=== PATIENT | female | born 1955 | race African-American/Black ===

== ENCOUNTER 2018-10-31 14:33 | Emergency (ER) | payer MEDICARE, MEDICAID ==
[2018-10-31] MEDS ORDERED: Ketorolac Tromethamine 30 MG/ML VIAL ONE (14:59)
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
[2018-10-31] MEDS ORDERED: Dexamethasone 10 MG/ML VIAL ONE (15:44)
--- NOTE | 2018-11-01 10:34 | EKG ---
Test Reason : Blood Pressure : / mmHG Vent. Rate : 085 BPM Atrial Rate : 085 BPM P-R Int : 176 ms QRS Dur : 094 ms QT Int : 374 ms P-R-T Axes : 068 -15 034 degrees QTc Int : 445 ms Normal sinus rhythm Possible Left atrial enlargement Incomplete right bundle branch block Inferior infarct , age undetermined Abnormal ECG Confirmed by NEO LOPEZ ([id number]), manager editorial ARNULFO OSEGUERA ([id number]) on 11/01/2018 10:34:12 AM Referred By: Confirmed By:NEO LOPEZ
== END 2018-10-31 15:56 | disposition home or self-care (01) ==
LOC: ERS 14:33
DX: G89.29 Other chronic pain (principal); M25.512 Pain in left shoulder; M06.9 Rheumatoid arthritis, unspecified; F41.9 Anxiety disorder, unspecified; F31.9 Bipolar disorder, unspecified; F20.9 Schizophrenia, unspecified
CPT/HCPCS: 93005; 96372; J1100; J1885

== ENCOUNTER 2019-06-23 08:26 | Outpatient (CLI) | payer MEDICARE, MEDICAID ==
--- NOTE | 2019-06-23 10:16 | MRI ---
MRI Upper Ext Jt Lt WO Con History: M 75.102 tear of rotator cuff Comparison: Shoulder radiographs 10/31/2018 Findings: Biceps tendon: High-grade interstitial tearing and tenosynovitis of the extra-articular ten don with high-grade intra-articular tendinosis and interstitial tearing. Erosive changes of the proximal bicipital groove due to chronic micromotion. Partial tear of the superior glenohumeral ligam ent portion of the biceps jolynn. There is debris within the biceps tendon sheath. Labrum: Mild volume loss superior labrum without displaced tear. Cartilage: No full-thickness cartilage defect is appreciated. Rotator cuff: High-grade undersurface partial tear supraspinatus tendon from the footprint with a 1.5 cm gap. The tear is 60-75% thickness. There is interstitial tearing extending along the myotendinous junction. Moderate tendinosis supraspinatus tendon. High-grade tendinosis and high-grade undersurface partial tearing subscapularis tendon. Soft tissues: Mild fibrosis of the rotator abnormal. Axillary pouch is not significantly thickened. Muscles: Mild 20-30% atrophy supraspinatus muscle. Bones: Type I acromion. Normal glenoid version. No acute fracture or malalignment. Impression: 1. High-grade 60-70 % partial articular supraspinatus tendon avulsion from the footprint with a 1.5 c m gap. There are associated interstitial delaminating myotendinous cysts. 2. Moderate tendinosis infraspinatus tendon without full-thickness tear. 3. High-grade tearing throughout the subscapularis proximal one half fibers with associated tendinosi s. 4. Extensive tenosynovitis extra articular biceps with interstitial tearing as well as calcific debri s within the tendon sheath. High-grade tendinosis and interstitial tearing propagates into the intra-articular tendon. There are associated partial tears and fibrosis of the coracohumeral ligament and superior glenohumeral ligament portions of the biceps jolynn. 5. Mild 20-30% atrophy supraspinatus muscle.
== END 2019-06-23 08:27 | disposition home or self-care (01) ==
LOC: BICMRI 08:26
PROVIDERS: ATTEND Orthopaedic Surgery
DX: M75.102 Unspecified rotator cuff tear or rupture of left shoulder, not specified as traumatic (principal); M65.812 Other synovitis and tenosynovitis, left shoulder

== ENCOUNTER 2019-07-21 05:46 | Outpatient (CLI) | payer MEDICARE, MEDICAID ==
[2019-07-21 09:43] LABS: Hemoglobin 13.8 g/dL (12.0-16.0); Mean Corpuscular HGB CONC 32.4 g/dL (32.0-36.0); Mean Corpuscular Hemoglobin 28.7 pg (27.0-31.0); Mean Corpuscular Volume 88.3 fL (78.0-98.0); Mean Platelet Volume 10.2 fL (7.4-10.4); Platelet Count 183 thou/uL (130-400); RBC Distribution Width 11.9 % (11.5-14.5); White Blood Cell (WBC) Count 7.5 thou/uL (4.8-10.8)
[2019-07-21 10:22] LABS: Lymphocytes 52 % (21-51); MDiff Complete? YES; Monocytes 12 % (0-10); Neutrophil 29 % (42-75); Platelet Morphology Comment Appears Adequate; RBC Morphology Normal; Reactive Lymphocytes 7 % (0-10)
== END 2019-07-21 05:47 | disposition home or self-care (01) ==
LOC: LABBT 05:46
PROVIDERS: ATTEND Orthopaedic Surgery
DX: Z01.812 Encounter for preprocedural laboratory examination (principal); M75.102 Unspecified rotator cuff tear or rupture of left shoulder, not specified as traumatic
CPT/HCPCS: 85025

== ENCOUNTER 2019-07-23 05:55 | Day surgery (SDC) | payer MEDICARE, MEDICAID ==
--- NOTE | 2019-07-21 07:58 | ULT ---
US Hepatic Doppler HISTORY: Chronic hepatitis C COMPARISON: None. FINDINGS: The liver, gallbladder, spleen and visualized portions of the pancreas, aorta and IVC appea r normal. The gallbladder wall measures 3 mm in thickness and the common bile duct measures 3 mm in diameter. The spleen measures 9.7 cm in length. No free fluid is seen. There is normal flow and gary l waveforms in the hepatic, portal and splenic vasculature. IMPRESSION: Unremarkable exam.
[2019-07-21 08:19] VITALS: BMI 30.2
[2019-07-23] MEDS ORDERED: Lidocaine 1% w/Epinephrine 1:100K 20 ML VIAL ONE (06:25)
[2019-07-23] MEDS ORDERED: Bupivacaine 0.25% HCL 30 ML VIAL ONE (06:25)
[2019-07-23] MEDS ORDERED: Fentanyl 100 MCG/2 ML VIAL ONE ×2 (06:35→07:23)
[2019-07-23] MEDS ORDERED: Midazolam HCl 2 mg/2 ml Vial ONE (06:35)
[2019-07-23] MEDS ORDERED: Lidocaine 1% (PF) 30 ML VIAL ONE (06:48)
[2019-07-23] MEDS ORDERED: Promethazine HCl 25 MG/ML VIAL IM PRN ×2 (07:33→08:14)
[2019-07-23] MEDS ORDERED: Ropivacaine 0.2% 550 ML 550 ML NERVE BLCK SCH (07:33)
[2019-07-23] MEDS ORDERED: traMADol HCl 50 MG TAB PO PRN ×2 (07:33)
[2019-07-23] MEDS ORDERED: Fentanyl 100 MCG/2 ML VIAL IV PRN (07:33)
[2019-07-23] MEDS ORDERED: HYDROcodone/Acetaminophen 5/325 mg Tablet PO PRN ×2 (07:33)
[2019-07-23] MEDS ORDERED: Zolpidem Tartrate 5 MG TAB PO PRN (07:33)
[2019-07-23] MEDS ORDERED: Ondansetron PF 4 MG/2 ML Vial IVP PRN (07:33)
[2019-07-23] MEDS ORDERED: Promethazine HCl 25 MG/ML VIAL SLOW IVP PRN (08:14)
[2019-07-23] MEDS ORDERED: Meperidine HCl/PF 25 MG/ML VIAL SLOW IVP PRN (08:14)
[2019-07-23] MEDS ORDERED: EPHEDRINE 25 MG/5 ML SYRINGE ONE (10:43)
[2019-07-23] MEDS ORDERED: Glycopyrrolate 0.2 MG/ML 5 ML SYRINGE ONE (10:43)
[2019-07-23] MEDS ORDERED: Ondansetron PF 4 MG/2 ML Vial ONE (10:43)
[2019-07-23] MEDS ORDERED: Rocuronium Bromide 10 MG/ML (10ML VIAL) ONE (10:43)
[2019-07-23] MEDS ORDERED: Dexamethasone 20 MG/5 ML VIAL ONE (10:43)
[2019-07-23] MEDS ORDERED: PHENYLEPHRINE-NS 100 MCG/ML 10 ML SYRINGE ONE (10:43)
[2019-07-23] MEDS ORDERED: Ropivacaine 0.2% HCl/PF (40 MG/20 ML VIAL) ONE (10:43)
[2019-07-23] MEDS ORDERED: Ropivacaine 0.5% HCl/PF (150 MG/30 ML VIAL) ONE (10:43)
[2019-07-23] MEDS ORDERED: PROPOFOL 200 MG/20 ML VIAL ONE (10:43)
[2019-07-23] MEDS ORDERED: Lidocaine 1% PF 5 ML VIAL ONE (10:43)
--- NOTE | 2019-07-23 10:53 | OP ---
DATE OF PROCEDURE: 07/23/2019 PREOPERATIVE DIAGNOSES: 1. Left high-grade partial-thickness tear. 2. Biceps tendinopathy. 3. Left acromioclavicular joint arthritis. POSTOPERATIVE DIAGNOSIS: 1. Full-thickness tear, supraspinatus. 2. Biceps tendinopathy with 30% tear. 3. Left acromioclavicular joint arthritis. PROCEDURES PERFORMED: 1. Left rotator cuff repair. 2. Left biceps tenodesis. UNLOADER OPERATOR: None. ANESTHESIOLOGIST: Paul Nunn MD. ANESTHESIA: The patient received a general endotracheal intubation with interscalene block. ESTIMATED BLOOD LOSS: 30 mL. TOURNIQUET TIME: None. IMPLANTS: An Arthrex 5.5 Corkscrew, a 4.5 SwiveLock, and an 8 x 19 mm SwiveLock tenodesis screw. ANTIBIOTICS: Ancef 2 g. COMPLICATIONS: None. HISTORY OF PRESENT ILLNESS: Ms. Rodarte si a 63-year-old female, who presents with left shoulder pain that began in 2019. She complains of numbness occasionally. The patient works at [employer] in [employer]. gave good relief, but continued to have pain. The patient presented with an MRI with a high-grade partial-thickness tear, some . She had severe tendinosis as well as some leading edge tearing of the subscapularis. I discussed with the patient the risks and benefits of a left arthroscopic rotator cuff repair with biceps tenodesis and potential decompression. I discussed the risks and benefits to include pain, scar bleeding, infection, damage to vital structures, decreased range of motion and strength, need for further surgeries, continued pain despite surgical intervention, Feroz deformity, loss of life or limb. The patient understood the risks and benefits and elected to proceed. DESCRIPTION OF PROCEDURE: Time-out was performed designating the patient's left upper extremity as the operative site based on site, consents, and marking. After time-out, the patient's left upper extremity was prepped and draped in sterile fashion. Posterior working portal was placed and anterior working portal was utilized to visualize the shoulder. On entering the shoulder, I saw a flattened, partially torn biceps. I did not like the look of the biceps; therefore. I tenotomized it. I could find the tear, intra-articularly, it was in the leading edge of the supraspinatus footprint, which I documented, cleaned up intra-articularly and moved subacromially. There was not significant bursa, you could find the tear of the rotator cuff subacromially. I had to use a shaver to kind of create a footprint for leaning pad for the anchor. I placed a 5.[address] and passed 4 sutures posterior to anterior horizontal mattress sutures and took a 5.5 SwiveLock laterally to compress it down to the bone. I took pictures. I then moved. I placed the lateral incision and placed an anterior portal to move to my lateral cannula for shuttling sutures. I then found the patient's biceps, opened up the sheath, cleaned off and then I found the biceps. I pulled the biceps out and through 5 whipped stitches with a FiberLoop through the tendon. I used the SwiveLock Bio-Tenodesis screw and passed sutures with a 4-prong. I drilled a hole within the bicipital groove about 30 mm drill 8.5 mm screw and tenodesed the suture into place. I took the sutures from the fork and sewed them over the Bio-Tenodesis screw, cut them and removed this we took final pictures, washed and closed. The patient will be placed in a sling with elbow, wrist, and hand motion. No active elbow flexion. She will follow up with me in about 2 weeks to begin passive range of motion. The patient's tendon quality was very poor. I am concerned about her ability to heal and potential rupture of the biceps as the flimsy nature of her tissues. Her subscapularis tear was not really visualized intra-articularly. I felt by removing the biceps, I would take pressure off it. I will see the patient back in clinic in 2 weeks. Job ID: [id number]
== END 2019-07-23 13:03 | disposition home or self-care (01) ==
LOC: SDC 05:55
PROVIDERS: ATTEND Orthopaedic Surgery
PROC: 0LM24ZZ Reattachment of Left Shoulder Tendon, Percutaneous Endoscopic Approach (ICD-10-PCS; principal; 2019-07-23)
PROC: 0RHK44Z Insertion of Internal Fixation Device into Left Shoulder Joint, Percutaneous Endoscopic Approach (ICD-10-PCS; 2019-07-23)
PROC: 0LS44ZZ Reposition Left Upper Arm Tendon, Percutaneous Endoscopic Approach (ICD-10-PCS; 2019-07-23)
PROC: 0RHK44Z Insertion of Internal Fixation Device into Left Shoulder Joint, Percutaneous Endoscopic Approach (ICD-10-PCS; 2019-07-23)
PROC: 3E0T3BZ Introduction of Anesthetic Agent into Peripheral Nerves and Plexi, Percutaneous Approach (ICD-10-PCS; 2019-07-23)
DX: M75.122 Complete rotator cuff tear or rupture of left shoulder, not specified as traumatic (principal); M75.22 Bicipital tendinitis, left shoulder; M19.012 Primary osteoarthritis, left shoulder; G89.18 Other acute postprocedural pain; M47.812 Spondylosis without myelopathy or radiculopathy, cervical region; F31.9 Bipolar disorder, unspecified; F20.9 Schizophrenia, unspecified; F41.9 Anxiety disorder, unspecified; M19.90 Unspecified osteoarthritis, unspecified site; Z79.899 Other long term (current) drug therapy
CPT/HCPCS: 29827; 29828; 64416; 76705; 97139; A4306; C1713 ×2; J0690; J1100; J2001; J2250; J2405; J2704; J2795; J3010; S0020

== ENCOUNTER 2019-11-19 03:59 | Inpatient (IN) | payer MEDICARE, MEDICAID ==
[2019-11-19] MEDS ORDERED: Morphine 4 MG/ML VIAL ONE (04:14)
[2019-11-19] MEDS ORDERED: Ondansetron PF 4 MG/2 ML Vial ONE ×3 (04:14→04:55)
[2019-11-19] MEDS ORDERED: Verapamil 5 MG/2 ML VIAL ONE (04:18)
[2019-11-19] MEDS ORDERED: Heparin 10,000 UNITS/1 ML VIAL ONE (04:18)
[2019-11-19] MEDS ORDERED: Nitroglycerin 100MG/250ML BOT 250 ML ONE (04:19)
[2019-11-19 04:28] LABS: Hemoglobin 13.1 g/dL (12.0-16.0); Mean Corpuscular HGB CONC 33.5 g/dL (32.0-36.0); Mean Corpuscular Hemoglobin 29.6 pg (27.0-31.0); Mean Corpuscular Volume 88.4 fL (78.0-98.0); Mean Platelet Volume 10.2 fL (7.4-10.4); Platelet Count 143 thou/uL (130-400); Red Blood Cell (RBC) Count 4.41 mill/uL (4.20-5.40); White Blood Cell (WBC) Count 6.3 thou/uL (4.8-10.8)
[2019-11-19 04:42] LABS: ALT (SGPT) 11 U/L (8-55); AST (SGOT) 35 U/L (5-34); Albumin 3.6 g/dL (3.4-4.8); Alkaline Phosphatase 129 U/L (40-110); Anion Gap 10 mmol/L (10-20); BUN (Urea Nitrogen) 9 mg/dL (9.8-20.1); Bilirubin, Total 0.3 mg/dL (0.2-1.2); CK (CPK) 445 U/L (29-168); Calc. Creatinine Clearance 0 mL/min (70-130); Calcium 8.9 mg/dL (7.8-10.44); Carbon Dioxide 24 mmol/L (23-31); Chloride 108 mmol/L (98-107); Estimated GFR-MDRD 81; Globulin 3.5 g/dL (2.4-3.5); Glucose 122 mg/dL (80-115); Potassium 3.3 mmol/L (3.5-5.1); Protein, Total 7.1 g/dL (6.0-8.3); Sodium 139 mmol/L (136-145)
[2019-11-19] MEDS ORDERED: Midazolam HCl 2 mg/2 ml Vial ONE (04:44)
[2019-11-19 04:48] LABS: Eosinophils 3 % (0-10); Lymphocytes 60 % (21-51); MDiff Complete? YES; Monocytes 11 % (0-10); Neutrophil 26 % (42-75); Platelet Morphology Comment Appears Adequate
[2019-11-19] MEDS ORDERED: Morphine 2 MG/ML SYRINGE ONE (04:55)
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
[2019-11-19] MEDS ORDERED: diphenhydrAMINE 50 MG/ML VIAL ONE (05:13)
[2019-11-19 05:17] LABS: CKMB 34.5 ng/mL (0-6.6)
[2019-11-19] MEDS ORDERED: Morphine 2 MG/ML SYRINGE SLOW IVP PRN (05:54)
[2019-11-19] MEDS ORDERED: Zolpidem Tartrate 5 MG TAB PO PRN (05:54)
[2019-11-19] MEDS ORDERED: Nitroglycerin 0.4 MG TAB (25 Tab Bottle) SL PRN ×2 (05:54)
[2019-11-19] MEDS ORDERED: Milk Of Magnesia 30 ML UDCUP PO PRN (05:54)
[2019-11-19] MEDS ORDERED: Aspirin Chewable 81 MG TAB PO SCH (06:00)
[2019-11-19 07:03] LABS: Troponin I 3.573 ng/mL (< 0.028)
[2019-11-19] MEDS ORDERED: Metoprolol Tartrate 5 MG/5 ML VIAL ONE (08:44)
[2019-11-19] MEDS ORDERED: Nitroglycerin 0.4 MG TAB (25 Tab Bottle) ONE (08:44)
[2019-11-19] MEDS ORDERED: TICAGRELOR 90 MG TABLET PO SCH (09:00)
[2019-11-19] MEDS ORDERED: Metoprolol Tartrate 25 MG TAB PO SCH ×2 (09:00)
[2019-11-19] MEDS ORDERED: Lisinopril 2.5 MG TAB PO SCH ×2 (09:00)
[2019-11-19] MEDS ORDERED: Iopamidol 370 76% 100 ML VIAL ONE (09:37)
[2019-11-19] MEDS ORDERED: Iopamidol 370 76% 50 ML VIAL FS ONE (09:37)
[2019-11-19] MEDS: TICAGRELOR 90 MG TABLET PO SCH ×2 (09:42→21:20)
[2019-11-19] MEDS: Aspirin Chewable 81 MG TAB PO SCH (09:42)
[2019-11-19] MEDS: Carvedilol 6.25 MG TAB PO SCH ×2 (09:44→17:28)
[2019-11-19] MEDS ORDERED: Carvedilol 6.25 MG TAB PO SCH (09:45)
--- NOTE | 2019-11-19 09:50 | RAD ---
AP CHEST: Date: 11/19/2019 HISTORY: Chest pain. FINDINGS: Lung levi appear clear of infiltrate. Vascular markings normal. Heart and mediastinum unremarkable. IMPRESSION: No acute process identified. POS: AGW
[2019-11-19 12:19] LABS: Troponin I 7.443 ng/mL (< 0.028)
[2019-11-19] MEDS: Acetaminophen/Codeine 30-300mg Tablet PO PRN ×3 (12:20→21:19)
[2019-11-19] MEDS ORDERED: Atorvastatin Calcium 40 MG TAB PO SCH (21:00)
[2019-11-19] MEDS: Atorvastatin Calcium 40 MG TAB PO SCH (21:19)
[2019-11-20 04:03] LABS: #Basophils 0.1 thou/uL (0.0-0.2); #Eosinphils 0.1 thou/uL (0.0-0.7); #Lymphocytes 2.7 thou/uL (1.20-3.40); #Monocytes 0.4 thou/uL (0.11-0.59); %Basophils 0.9 % (0.0-1.0); %Eosinophils 1.3 % (0.0-10.0); %Lymphocytes 43.4 % (21.0-51.0); %Neutrophils 47.4 % (42.0-75.0); Mean Corpuscular HGB CONC 34.2 g/dL (32.0-36.0); Mean Corpuscular Hemoglobin 30.1 pg (27.0-31.0); Mean Corpuscular Volume 88.1 fL (78.0-98.0); Mean Platelet Volume 10.3 fL (7.4-10.4); Platelet Count 132 thou/uL (130-400); RBC Distribution Width 12.2 % (11.5-14.5); Red Blood Cell (RBC) Count 3.99 mill/uL (4.20-5.40); White Blood Cell (WBC) Count 6.2 thou/uL (4.8-10.8)
[2019-11-20 04:33] LABS: ALT (SGPT) 11 U/L (8-55); AST (SGOT) 32 U/L (5-34); Albumin 3.1 g/dL (3.4-4.8); Alkaline Phosphatase 86 U/L (40-110); Anion Gap 11 mmol/L (10-20); BUN (Urea Nitrogen) 8 mg/dL (9.8-20.1); Bilirubin, Total 0.4 mg/dL (0.2-1.2); Calc. Creatinine Clearance 99 mL/min (70-130); Calcium 8.6 mg/dL (7.8-10.44); Carbon Dioxide 22 mmol/L (23-31); Cardiac Risk 4.1 (Less than 4.5); Chloride 109 mmol/L (98-107); Cholesterol 163 mg/dl (< 200 Desired); Estimated GFR-MDRD Greater than 90; Globulin 3.1 g/dL (2.4-3.5); Glucose 94 mg/dL (80-115); HDL Cholesterol 40 mg/dL (>60 Neg Risk); LDL Cholesterol, Calculated 91 mg/dL; Potassium 3.7 mmol/L (3.5-5.1); Protein, Total 6.2 g/dL (6.0-8.3); Sodium 138 mmol/L (136-145); Triglycerides 160 mg/dL (Less than 150)
[2019-11-20] MEDS: TICAGRELOR 90 MG TABLET PO SCH ×2 (08:48→20:31)
[2019-11-20] MEDS: Aspirin Chewable 81 MG TAB PO SCH (08:48)
[2019-11-20] MEDS: Lisinopril 2.5 MG TAB PO SCH ×2 (08:48→20:31)
[2019-11-20] MEDS: Carvedilol 6.25 MG TAB PO SCH ×2 (08:48→16:54)
[2019-11-20] MEDS: Atorvastatin Calcium 40 MG TAB PO SCH (20:31)
[2019-11-21] MEDS: Lisinopril 2.5 MG TAB PO SCH ×2 (08:35→20:56)
[2019-11-21] MEDS: TICAGRELOR 90 MG TABLET PO SCH ×2 (08:35→20:56)
[2019-11-21] MEDS: Aspirin Chewable 81 MG TAB PO SCH (08:35)
[2019-11-21] MEDS: Carvedilol 6.25 MG TAB PO SCH ×2 (08:35→17:23)
--- NOTE | 2019-11-21 11:56 | EKG ---
Test Reason : Blood Pressure : / mmHG Vent. Rate : 081 BPM Atrial Rate : 081 BPM P-R Int : 176 ms QRS Dur : 108 ms QT Int : 382 ms P-R-T Axes : 060 003 047 degrees QTc Int : 443 ms Normal sinus rhythm Low voltage QRS Anteroseptal infarct , possibly acute * ACUTE AR * Abnormal ECG Confirmed by NEO LOPEZ ([id number]), book editor ARNULFO OSEGUERA ([id number]) on 11/21/2019 11:56:06 AM Referred By: Confirmed By:NEO LOPEZ
[2019-11-21] MEDS: Atorvastatin Calcium 40 MG TAB PO SCH (20:56)
[2019-11-22] MEDS: TICAGRELOR 90 MG TABLET PO SCH ×2 (09:02→20:36)
[2019-11-22] MEDS: Aspirin Chewable 81 MG TAB PO SCH (09:02)
[2019-11-22] MEDS: Lisinopril 2.5 MG TAB PO SCH ×2 (09:59→20:35)
[2019-11-22] MEDS: Carvedilol 6.25 MG TAB PO SCH ×2 (09:59→17:08)
[2019-11-22] MEDS: Atorvastatin Calcium 40 MG TAB PO SCH (20:36)
[2019-11-23 05:54] VITALS: BMI 29.0
[2019-11-23 07:32] VITALS: TEMP 98.3
[2019-11-23] MEDS: Aspirin Chewable 81 MG TAB PO SCH (09:03)
[2019-11-23] MEDS: Lisinopril 2.5 MG TAB PO SCH (09:03)
[2019-11-23] MEDS: Carvedilol 6.25 MG TAB PO SCH (09:03)
[2019-11-23] MEDS: TICAGRELOR 90 MG TABLET PO SCH (09:07)
[2019-11-23 10:04] VITALS: BP 116/82
--- NOTE | 2019-11-23 10:08 | DIS ---
DATE OF ADMISSION: 11/19/2019 DATE OF DISCHARGE: 11/23/2019 DISCHARGE DIAGNOSES: 1. Myocardial infarction. 2. Status post percutaneous transluminal coronary angioplasty and stent placed in the left anterior descending. 3. Hypertension. 4. Hepatitis C. HISTORY OF PRESENT ILLNESS/HOSPITAL COURSE: The patient is a 64-year-old woman , who presented with acute onset of substernal chest pain. The patient was using cocaine when she suddenly developed substernal chest pain. She presented to the Emergency Room with marked ST elevation and the patient underwent an emergent cardiac catheterization. 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 She had 2 stents placed into the proximal LAD. The patient was also found to have a 99% stenosis in the left circumflex artery. The right coronary artery had a diffuse disease. The patient was placed on medical therapy. She remained free of chest discomfort. She had a followup echocardiograms, which showed improvement in her left ventricular function. The patient is discharged in stable, but guarded condition. DISCHARGE MEDICATIONS: 1. Coreg 6.25 b.i.d. 2. Lisinopril 2.5 b.i.d. 3. Aspirin 81 daily. 4. Lipitor 40 at bedtime. 5. Brilinta 90 mg p.o. b.i.d. Job ID: [id number] [facility]
== END 2019-11-23 14:41 | disposition home or self-care (01) | DRG 249 ==
LOC: ERS 03:59 → CCU 05:43 → 2SE 11-20 10:24
PROVIDERS: ADMIT Internal Medicine Cardiovascular Disease; ATTEND Internal Medicine Cardiovascular Disease
PROC: 02703DZ Dilation of Coronary Artery, One Artery with Intraluminal Device, Percutaneous Approach (ICD-10-PCS; principal; 2019-11-19)
PROC: 4A023N7 Measurement of Cardiac Sampling and Pressure, Left Heart, Percutaneous Approach (ICD-10-PCS; 2019-11-19)
PROC: B2151ZZ Fluoroscopy of Left Heart using Low Osmolar Contrast (ICD-10-PCS; 2019-11-19)
PROC: B2111ZZ Fluoroscopy of Multiple Coronary Arteries using Low Osmolar Contrast (ICD-10-PCS; 2019-11-19)
DX: I21.09 ST elevation (STEMI) myocardial infarction involving other coronary artery of anterior wall (principal); B18.2 Chronic viral hepatitis C; F31.9 Bipolar disorder, unspecified; F20.9 Schizophrenia, unspecified; F41.9 Anxiety disorder, unspecified; I10 Essential (primary) hypertension; F14.90 Cocaine use, unspecified, uncomplicated; Z90.710 Acquired absence of both cervix and uterus
CPT/HCPCS: 36415; 71045; 80053; 80061; 82550; 82553; 84484; 85025; 85347; 92941; 93005; 93010; 93306; 93458; 93798; 96374; 96375; 99152; 99153; C1876; J1200; J1644; J2250; J2270; J2405; Q9967

== ENCOUNTER 2021-04-12 11:02 | Emergency (ER) | payer OTHER, MEDICARE, MEDICAID ==
[2021-04-12 13:09] LABS: Hemoglobin 13.1 g/dL (12.0-16.0); Mean Corpuscular HGB CONC 33.1 g/dL (32.0-36.0); Mean Corpuscular Hemoglobin 30.5 pg (27.0-31.0); Mean Corpuscular Volume 92.2 fL (78.0-98.0); Mean Platelet Volume 9.7 fL (7.4-10.4); Platelet Count 135 thou/uL (130-400); RBC Distribution Width 12.4 % (11.5-14.5); White Blood Cell (WBC) Count 5.8 thou/uL (4.8-10.8)
[2021-04-12 13:25] LABS: ALT (SGPT) 11 U/L (8-55); AST (SGOT) 16 U/L (5-34); Albumin 4.1 g/dL (3.4-4.8); Alkaline Phosphatase 86 U/L (40-110); Anion Gap 13 mmol/L (10-20); BUN (Urea Nitrogen) 17 mg/dL (9.8-20.1); Bilirubin, Total 0.3 mg/dL (0.2-1.2); Calc. Creatinine Clearance 0 mL/min (70-130); Calcium 9.7 mg/dL (7.8-10.44); Carbon Dioxide 23 mmol/L (23-31); Chloride 107 mmol/L (98-107); Globulin 3.6 g/dL (2.4-3.5); Glucose 91 mg/dL (80-115); Potassium 4.3 mmol/L (3.5-5.1); Protein, Total 7.7 g/dL (5.8-8.1); Sodium 139 mmol/L (136-145)
[2021-04-12 13:39] LABS: Eosinophils 1 % (0-10); Lymphocytes 36 % (21-51); MDiff Complete? YES; Monocytes 4 % (0-10); Neutrophil 37 % (42-75); Platelet Morphology Comment Appears Adequate; Polychromasia SLIGHT = 2-3 cells (100X) (0-2/hpf); Reactive Lymphocytes 22 % (0-10)
== END 2021-04-12 14:19 | disposition home or self-care (01) ==
LOC: ERS 11:02
DX: M62.830 Muscle spasm of back (principal); M25.512 Pain in left shoulder; R00.1 Bradycardia, unspecified; I10 Essential (primary) hypertension; E78.5 Hyperlipidemia, unspecified; M06.9 Rheumatoid arthritis, unspecified; V73.6XXA Passenger on bus injured in collision with car, pick-up truck or van in traffic accident, initial encounter; Z87.19 Personal history of other diseases of the digestive system; Z95.5 Presence of coronary angioplasty implant and graft
CPT/HCPCS: 36415; 71045; 80053; 84484; 85025; 93005

== ENCOUNTER 2022-08-30 16:25 | Emergency (ER) | payer OTHER ==
[2022-08-30] MEDS ORDERED: Lidocaine Viscous Sol 2% 15 ml UD Cup ONE (18:52)
== END 2022-08-30 19:38 | disposition home or self-care (01) ==
LOC: ERS 16:25
DX: H65.02 Acute serous otitis media, left ear (principal); H60.502 Unspecified acute noninfective otitis externa, left ear; M06.9 Rheumatoid arthritis, unspecified; I10 Essential (primary) hypertension; E78.5 Hyperlipidemia, unspecified; I25.2 Old myocardial infarction
CPT/HCPCS: 99282